=== PATIENT | female | born 1995 | race Caucasian/White ===

== ENCOUNTER 2016-12-07 17:37 | Emergency (ER) | payer MEDICAID, OTHER ==
[~2016-12-07] VITALS: Ht 162.6 cm; Wt 73.0 kg
[~2016-12-07 17:37] MED LIST: FERR240T9 PO; PREN1TAB62 PO
[2016-12-07 17:49] VITALS: Ht 162.6 cm; Wt 73.0 kg
[2016-12-07 19:06] LABS: ADD SCAN DIFF NO
[2016-12-07 19:08] LABS: BASOPHIL # 0.1 10^3/ul (0.0-0.1); BASOPHILS % 0.6 % (0.0-2.0); EOSINOPHILS % 0.4 % (0.0-7.0); HEMOGLOBIN 13.1 g/dl (12.0-16.0); LYMPHOCYTES # 2.3 10^3/ul (0.8-2.9); LYMPHOCYTES % 21.6 % (15.0-51.0); MEAN CORPUSCULAR HEMOGLOBIN 23.8 pg (29.0-33.0); MEAN CORPUSCULAR HGB CONC 32.8 g/dl (32.0-37.0); MEAN CORPUSCULAR VOLUME 72.6 fl (82.0-101.0); MONOCYTE # 0.5 10^3/ul (0.3-0.9); MONOCYTES % 5.2 % (0.0-11.0); NEUTROPHIL # 7.5 10^3/ul (1.6-7.5); NEUTROPHILS % 71.9 % (39.0-77.0); PLATELET COUNT 362 10^3/UL (140-415); RED BLOOD COUNT 5.51 10^6/ul (4.20-5.40); RED CELL DISTRIBUTION WIDTH 17.4 % (11.5-14.5); WHITE BLOOD COUNT 10.4 10^3/ul (4.8-10.8)
[2016-12-07 19:21] LABS: ADD UMIC YES; UR BILIRUBIN (Dip) NEGATIVE (NEGATIVE); UR BLOOD (Dip) 3+ (NEGATIVE); UR GLUCOSE (Dip) NEGATIVE (NEGATIVE); UR KETONES (Dip) NEGATIVE (NEGATIVE); UR LEUKOCYTE ESTERASE (Dip) NEGATIVE (NEGATIVE); UR NITRITE (Dip) NEGATIVE (NEGATIVE); UR TOTAL PROTEIN (Dip) 2+ (NEGATIVE); UR UROBILINOGEN (Dip) 1.0 E.U./dL (0.1-1.0)
[2016-12-07 19:24] LABS: UR CLARITY BLOODY (CLEAR); UR COLOR RED (YELLOW)
[2016-12-07 19:39] LABS: BACTERIA,URINE FEW; UR SQUAMOUS EPITHELIAL CELL FEW; URINE RBCS >200 /HPF (0)
--- NOTE | 2016-12-07 19:54 | RADRPT ---
PROCEDURE: US OB. CLINICAL INDICATION: . Vaginal bleeding. Status post pill. TECHNIQUE: Multiple sonographic images of the pelvis were obtained. Transabdominal and transvagin al views of the pelvis are available for review. The images were reviewed on a PACS workstation. COMPARISON: 10/04/2014. FINDINGS: There is an intrauterine irregular gestational sac containing a pole with a crown-rump length of 2.03 cm, corresponding 8 weeks 4 days is identified. However, no cardiac activity is det ected. A small subchorionic hemorrhage is identified. The ovaries are unremarkable color Doppler flow. There is no adnexal mass or free fluid. IMPRESSION: Intrauterine sac-like structure with possible pole at 8 weeks 4 days size without heart motion . Lack of heart motion at this size is consistent with demise. Small subchorionic hemorrhage. No adnexal mass or free fluid to suggest ectopic . RPTAT: HMVK .Gabriel Bar MD, Date Time Electronically viewed and signed by .Gabriel Bar MD, on 12/07/2016 19:53 .K/
[2016-12-07] MEDS ORDERED: TYL500 PO (20:48)
[2016-12-07 21:02] VITALS: BP 110/68; PULSE 65; RESP 20; TEMP 98.8
--- NOTE | 2016-12-07 21:05 | ERD ---
ER Documentation Chief Complaint Date/Time DATE: 12/07/16 TIME: 21:01 Chief Complaint vag bleed after taking pill today, 10 weeks HPI This is a 21-year-old female presents to the ER because her [employer] told her she had a miscarriage. She went to see him today and was told that the baby did not have a heartbeat. She was given 2 pills to take and states that she began to bleed today. Patient states she was given an pill, however wanted to make sure that the baby did not have a heartbeat. Patient admits to pelvic cramping. She denies any urinary frequency or dysuria. A0. ROS 12 point review of systems was done, all negative except per HPI. Medications Home Meds Active Scripts Acetaminophen* (Tylenol*) 500 Mg Tab, 1000 MG PO Q6 Y for PAIN AND OR ELEVATED TEMP for 3 Days, TAB Prov:AMPARO JAIMES 12/07/16 Reported Medications Vit-Iron Fumarate-FA ( Vitamin Tablet) 1 Each Tablet, 1 TAB PO DAILY, TAB 09/16/14 Ferrous Gluconate (Iron) 1 Tab Tablet, 1 TAB PO BID 09/16/14 Allergies Allergies: Coded Allergies: No Known Allergies (Verified Allergy, Unknown, 10/12/14) PMhx/Soc Medical and Surgical Hx: pt denies Medical Hx, pt denies Surgical Hx Hx Alcohol Use: No Hx Substance Use: No Hx Tobacco Use: No Smoking Status: Never smoker Physical Exam Vitals Vital Signs Date Time Temp Pulse Resp B/P Pulse Ox O2 Delivery O2 Flow Rate FiO2 12/07/16 17:49 99.4 97 20 119/77 97 Physical Exam GENERAL: The patient is well developed and appropriate for usual state of health , in no apparent distress. HEENT: Atraumatic. CHEST: Clear to auscultation bilaterally. There are no rales, wheezes or rhonchi. HEART: Regular rate and rhythm. No murmurs, clicks, rubs or gallops. ABDOMEN: Soft, nontender and nondistended. Good bowel sounds. No rebound or guarding. No gross peritonitis. No gross organomegaly or masses. No Gallo sign or McBurney point tenderness. BACK: No midline or flank tenderness. NEURO: Alert and oriented. Result Diagram: 12/07/16 1850 Results 24 hrs Laboratory Tests Test 12/07/16 18:44 12/07/16 18:50 Urine Color RED Urine Clarity BLOODY Urine pH 5.0 Urine Specific [place] >=1.030 Urine Ketones NEGATIVE Urine Nitrite NEGATIVE Urine Bilirubin NEGATIVE Urine Urobilinogen 1.0 E.U./dL Urine Leukocyte Esterase NEGATIVE Urine Microscopic RBC >200/HPF Urine Microscopic WBC 2-5/HPF Urine Squamous Epithelial Cells FEW Urine Bacteria FEW Urine Hemoglobin 3+ Urine Glucose NEGATIVE% Urine Total Protein 2+ White Blood Count 10.410^3/ul Red Blood Count 5.5110^6/ul Hemoglobin 13.1g/dl Hematocrit 40.0% Mean Corpuscular Volume 72.6fl Mean Corpuscular Hemoglobin 23.8pg Mean Corpuscular Hemoglobin Concent 32.8g/dl Red Cell Distribution Width 17.4% Platelet Count 82858^3/UL Mean Platelet Volume 10.0fl Neutrophils % 71.9% Lymphocytes % 21.6% Monocytes % 5.2% Eosinophils % 0.4% Basophils % 0.6% Nucleated Red Blood Cells % 0.0/100WBC Neutrophils # 7.510^3/ul Lymphocytes # 2.310^3/ul Monocytes # 0.510^3/ul Eosinophils # 0.010^3/ul Basophils # 0.110^3/ul Nucleated Red Blood Cells # 0.010^3/ul Beta HCG, Quantitative 397977.0mIU/ml Procedures/MDM Differential diagnosis: Threatened , missed , incomplete , ectopic , molar , UTI, pyelonephritis. Unfortunately patient does appear to have had a miscarriage. On ultrasound there is no evidence of heart tones, which at this time in her should be present. Suspicion for molar is low. Patient already took 2 pills and has been bleeding with pelvic cramping. Miscarriages likely on its way. Suspicion for incomplete is low at this time. Patient is hemodynamically stable and is stable for outpatient follow-up. Patient is to follow-up with her OB in 48 hours or return to ER sooner if symptoms worsen. My medical decision making was shared with the patient, she understands and agrees with plan. Departure Diagnosis: Primary Impression: demise Condition: Stable Patient Instructions: Miscarriage Additional Instructions: Llame al doctor MARJORIE y yoselin letitia NIDA PARA DENTRO DE 1-2 JARQUIN.Dgale a la secretaria que nosotros le instruimos hacer esta nida.Avise o llame si castano condicin se empeora antes de la nida. Regresa aqui si peor o no mejor. AMPARO JAIMES Dec 07, 2016 21:05
== END 2016-12-07 21:00 | disposition home or self-care (01) ==
LOC: FTE 17:37
DX: O02.1 Missed abortion (principal)
CPT/HCPCS: 36415; 76801; 81001; 84702; 85025; 86900; 86901; Z7502

== ENCOUNTER 2017-12-23 21:57 | Outpatient (CLI) | END 2017-12-24 02:20 | disposition home or self-care (01) ==

== ENCOUNTER 2018-01-13 03:50 | Inpatient (IN) | END 2018-01-16 14:40 | disposition home or self-care (01) | DRG 775 ==